=== PATIENT | male | born 1950 | race Caucasian/White ===

== ENCOUNTER 2019-02-24 13:55 | Emergency (ER) | payer BC, MEDICAID ==
[~2019-02-24] VITALS: Ht 157.5 cm; Wt 59.0 kg
[~2019-02-24 13:55] MED LIST: INSDRIP SUBCUT; PHE100C PO
[2019-02-24] MEDS ORDERED: ACETAMINOPHEN 325 MG TAB PO ONE (18:15)
[2019-02-24 18:32] VITALS: BP 134/91
== END 2019-02-24 18:46 | disposition home or self-care (01) ==
LOC: ER 14:05
DX: S83.92XA Sprain of unspecified site of left knee, initial encounter (principal); E11.9 Type 2 diabetes mellitus without complications; F17.210 Nicotine dependence, cigarettes, uncomplicated; F12.10 Cannabis abuse, uncomplicated; Z88.8 Allergy status to other drugs, medicaments and biological substances; W19.XXXA Unspecified fall, initial encounter; Y93.89 Activity, other specified; Y99.8 Other external cause status; Y92.89 Other specified places as the place of occurrence of the external cause
CPT/HCPCS: 73562

== ENCOUNTER 2025-01-11 17:36 | Inpatient (IN) | payer OTHER, MEDICARE ==
[~2025-01-11] VITALS: Ht 157.5 cm; Wt 54.1 kg
[~2025-01-11 17:36] MED LIST changes: -PHE100C PO; +PHEN1CAP38 PO
--- NOTE | 2025-01-11 19:25 | ED.PDOC ---
History of Present Illness HPI Comments This patient is a 74 y/o M who appears to be in poor overall health with a history of DM, seizures, and polysubstance abuse, is BIBA with c/c of bilateral foot wound discharge and odor. Patient reports recent onset of symptoms over the past few days following left-sided multidigit foot amputation as well as complaints on the pedal aspect of the right foot with accompanying wounds. Denies any fever, chills, or further associated symptoms. Vital signs were stable on arrival. Chief Complaint: Wound Check Time Seen by MD: 19:00 Primary Care Provider: OUT OF TOWN Reviewed Notes: Nurses Notes, Dressmaking Teacher Notes, Medications, Allergies Allergies: Coded Allergies: Nifedipine (Verified Allergy, Unknown, 08/05/18) Home Meds Reported Medications Phenytoin Sodium (DILANTIN CAPSULE) 100 Mg Cp, PO TID for 30 Days 08/06/18 Insulin Regular (Human) (Novolin R) 100 Unit/Ml Inj, 20 UNIT SUBCUT TID, INJ 08/06/18 Information Source: Patient, Emergency Med Personnel Mode of Arrival: EMS Severity: Moderate Timing: Hours Duration: Since onset Prehospital treatment: 12 Lead EKG, Accucheck, Heel Caser Past Medical History PAST MEDICAL HISTORY: DM, Seizures Surgical History: Denies all surgeries Surgical History (Other): Recent left forefoot amputation due to complications from diabetes Family History Family History: Unobtainable Social History Smoker: Cigarettes Alcohol: Occasionally Drugs: Methamphetamine Lives In: Home Constitutional: denies: chills, diaphoresis, fatigue, fever, malaise, sweats, weakness, others EENTM: denies: blurred vision, double vision, ear bleeding, ear discharge, ear drainage, ear pain, ear ringing, eye pain, eye redness, hearing loss, mouth pain, mouth swelling, nasal discharge, nose bleeding, nose congestion, nose pain, photophobia, tearing, throat pain, throat swelling, voice changes, others Respiratory: denies: cough, hemoptysis, orthopnea, SOB at rest, shortness of breath, SOB with excertion, stridor, wheezing, others Cardiovascular: denies: chest pain, dizzy spells, diaphoresis, Dyspnea on exertion, edema, irregular heart beat, left arm pain, lightheadedness, palpitations, PND, syncope, others Gastrointestinal: denies: abdomen distended, abdominal pain, blood streaked bowels, constipated, diarrhea, dysphagia, difficulty swallowing, hematemesis, melena, nausea, poor appetite, poor fluid intake, rectal bleeding, rectal pain, vomiting, others Genitourinary: denies: burning, dysuria, flank pain, frequency, hematuria, incontinence, penile discharge, penile sore, pain, testicle pain, testicle swelling, urgency, others Neurological: denies: dizziness, fainting, headache, left sided numbness, left sided weakness, numbness, paresthesia, pre-existing deficit, right sided nu mbness, right sided weakness, seizure, speech problems, tingling, tremors, weakness, others Musculoskeletal: reports: others (Bilateral foot wounds and pain.); denies: back pain, gout, joint pain, joint swelling, muscle pain, muscle stiffness, neck pain Integumetry: denies: bruises, change in color, change in hair/nails, dryness, laceration, lesions, lumps, rash, wounds, others Allergic/Immunocompromised: denies: Difficulty Healing, Frequent Infections, Hives, Itching, others Hematologic/Lymphatic: denies: anemia, blood clots, easy bleeding, easy bruising, swollen glands, others Endocrine: denies: excessive hunger, excessive sweating, excessive thirst, excessive urination, flushing, intolerance to cold, intolerance to heat, unexplained weight gain, unexplained weight loss, others Psychiatric: denies: anxiety, bipolar disorder, depression, hopeless, panic disorder, schizophrenia, sleepless, suicidal, others All Other Systems: Reviewed and Negative (Comprehensive systems review obtained and negative except for what is stated in the HPI.) Physical Exam General Appearance: Mild Distress (Moderate distress due to concerns related to his foot issues.), Normal HEENT: Normal ENT Inspection, Pharynx Normal, TMs Normal Neck: Full Range of Motion, Non-Tender, Normal, Normal Inspection Respiratory: Chest Non-Tender, Lungs Clear, No Accessory Muscle Use, No Respiratory Distress, Normal Breath Sounds Cardiovascular: No Edema, No JVD, No Murmur, No Gallop, Normal Peripheral Pulses, Regular Rate/Rhythm Breast Exam: Deferred Gastrointestinal: No Organomegaly, Non Tender, No Pulsatile Mass, Normal Bowel Sounds, Soft Genitalia: Deferred Pelvic: Deferred Rectal: Deferred Extremities: Other (Patient displays a malodorous wounds to the left foot with friable tissue and tissue compromise throughout. Localized erythema and edema. Right foot has mild malodorous concerns with wounds noted to multiple pedal aspect.) Neurologic: Alert Cerebellar Function: NOT DONE Reflexes: NOT DONE Skin: Dry, Wounds (See extremities for description of bilateral foot wounds) Lymphatic: No Adenopathy Was a procedure done? Was a procedure done?: No Differential Dx Considerations may include: unhealing diabetic wound, cellulitis, sepsis, among others, among others X-Ray, Labs, Meds, VS Vital Signs Date Time Temp Pulse Resp B/P (MAP) Pulse Ox O2 Delivery O2 Flow Rate FiO2 01/11/25 20:00 98.6 83 19 120/63 (82) 95 98.6 01/11/25 17:39 98.3 84 16 121/71 95 98.3 Lab Test 01/11/25 20:35 01/11/25 19:39 Range/Units Troponin I High Sensitivity 7 7 </=54 ng/L White Blood Count 9.2 4.4-10.8 10^3/uL Red Blood Count 5.14 4.5-5.90 10^6/uL Hemoglobin 13.9 13.5-17.5 g/dL Hematocrit 42.2 41.0-53.0 % Mean Corpuscular Volume 82.2 80.0-100.0 fL Mean Corpuscular Hemoglobin 27.0 L 28.0-32.0 pg Mean Corpuscular Hemoglobin Concent 32.8 32.0-36.0 g/dL Red Cell Distribution Width 15.2 H 11.8-14.3 % Platelet Count 184 140-450 10^3/uL Mean Platelet Volume 8.6 6.9-10.8 fL Neutrophils (%) (Auto) 67.8 37.0-80.0 % Lymphocytes (%) (Auto) 25.0 10.0-50.0 % Monocytes (%) (Auto) 4.7 0.0-12.0 % Eosinophils (%) (Auto) 1.7 0.0-7.0 % Basophils (%) (Auto) 0.8 0.0-2.0 % Neutrophils # (Auto) 6.3 1.6-8.6 10 ^3/uL Lymphocytes # (Auto) 2.3 0.4-5.4 10 ^3/uL Monocytes # (Auto) 0.4 0-1.3 10 ^3/uL Eosinophils # (Auto) 0.2 0-0.8 10 ^3/uL Basophils # (Auto) 0.1 0-0.2 10 ^3/uL Nucleated Red Blood Cells 0.0 % Sodium Level 144 136-145 mmol/L Potassium Level 4.5 3.5-5.1 mmol/L Chloride Level 109 H 98-107 mmol/L Carbon Dioxide Level 26 20-31 mmol/L Anion Gap 9 5-15 Blood Urea Nitrogen 31 H 9-23 mg/dL Creatinine 1.21 0.700-1.30 mg/dL Glomerular Filtration Rate Calc 62 >90 mL/min BUN/Creatinine Ratio 25.6 H 10.0-20.0 Serum Glucose 199 H 74-106 mg/dL Lactic Acid Level 1.3 0.4-2.0 mmol/L Calcium Level 9.4 8.7-10.4 mg/dL [place] [id number] Ph: [phone] DIAGNOSTIC IMAGING Diagnostic Imaging Report : [id number] Signed PATIENT: FRANCISCO MOYA ACCT: [id number] UNIT: [id number] : 1950 LOC: ER ROOM / BED: / AGE / SEX: 74 / M ADM STATUS: REG ER SERVICE 03 ORDERING PHYSICIAN: NICOLE BALL PAC PROCEDURE(s): RFTCT - CT R FOOT WO CONTRAST REASON: Rule out osteomyelitis ORDER NUMBER(s): [id number], ACCESSION NUMBER(s): [id number] EXAM: CT CT R FOOT WO CONTRAST INDICATION: Rule out osteomyelitis TECHNIQUE: Axial images of right foot without contrast have been obtained along with coronal and sagittal reformatted images. All CT scans at this facility use dose modulation, iterative reconstruction, and/or weight based dosing when appropriate to reduce radiation dose to as low as reasonably achievable. COMPARISON: CT CT L FOOT WO CONTRAST on DOS: 01/11/25 FINDINGS: BONES: No CT evidence of an acute fracture or aggressive osseous lesion. Deep to the 1st metatarsophalangeal joint. No abnormal osseous erosion, lucency, sclerosis to suggest osteomyelitis. Pressure related change deep to the 5th metatarsal head with slight cortical irregularity of the 5th metatarsal head likely related to prior injury versus chronic repetitive injury. MUSCLES: No abnormal attenuation. JOINT SPACES: No joint effusion. TENDONS/LIGAMENTS: Intact. OTHER: Vascular calcifications. Achilles insertional enthesophyte appearance small plantar calcaneal spur. IMPRESSION: 1. No CT evidence of osteomyelitis. If continued clinical concern 2. No CT evidence of an acute fracture., recommend further evaluation with MRI with and without contrast for improved sensitivity. ATED BY: WILLIE SAWYER MD DICTATED DATE/TIME: 01/11/252018 SIGNED BY: WILLIE SAWYER MD SIGNED DATE/TIME: 01/11/252018 CC: [place] [id number] Ph: [phone] DIAGNOSTIC IMAGING Diagnostic Imaging Report : [id number] Signed PATIENT: FRANCISCO MOYA ACCT: [id number] UNIT: [id number] : 1950 LOC: ER ROOM / BED: / AGE / SEX: 74 / M ADM STATUS: REG ER SERVICE 03 ORDERING PHYSICIAN: NICOLE BALL PAC PROCEDURE(s): LFTCT - CT L FOOT WO CONTRAST REASON: Bilateral diabetic foot. ORDER NUMBER(s): [id number], ACCESSION NUMBER(s): [id number] EXAM: CT CT L FOOT WO CONTRAST INDICATION: Bilateral diabetic foot. TECHNIQUE: Axial images of left foot without contrast have been obtained along with coronal and sagittal reformatted images. All CT scans at this facility use dose modulation, iterative reconstruction, and/or weight based dosing when appropriate to reduce radiation dose to as low as reasonably achievable. COMPARISON: CT CT R FOOT WO CONTRAST on DOS: 01/11/25 FINDINGS: BONES: Transmetatarsal amputation without evidence of abnormal osseous erosion however abnormal area of inflammatory stranding/ phlegmon with possible small incompletely characterized fluid collection measuring 1.4 cm of the anterior aspect of the residual 3rd and 4th metatarsal stumps. Consider further evaluation with intravenous contrast versus MRI with and without contrast. Diffusely decreased bone mineral density. MUSCLES: No intramuscular fluid collection JOINT SPACES: No joint effusion. OTHER: None. IMPRESSION: 1. Transmetatarsal amputation without evidence of abnormal osseous erosion however abnormal area of inflammatory stranding/ phlegmon with possible small incompletely characterized fluid collection measuring 1.4 cm of the anterior aspect of the residual 3rd and 4th metatarsal stumps. 2. Consider further evaluation with intravenous contrast versus MRI with and without contrast. ATED BY: WILLIE SAWYER MD DICTATED DATE/TIME: 01/11/252016 SIGNED BY: WILLIE SAWYER MD SIGNED DATE/TIME: 01/11/252016 CC: X-Ray, Labs, Meds, VS Comment All studies performed the ED were evaluated by me personally. Serum laboratories were unremarkable for any systemic concerns, but CT evaluation of bilateral feet was concerning for possible osteomyelitis formation. Left foot wound is significant with a gas trapping and right foot room is less concerning. Patient will be admitted for IV antibiotics as well as podiatry evaluation. Time of 1ST Reevaluation: 21:57 Reevaluation 1ST: Improved Consultation: PCP Patient Education/Counseling: Diagnosis, Treatment Family Education/Counseling: Diagnosis, Treatment, No Family Present SEPSIS Sepsis Screen Date sepsis recognized/suspect: Jan 11, 2025 Time Sepsis recognized/suspect: 1738 Recent Procedure: No On Antibiotic Therapy: No Respiratory Rate >20: No Heart Rate >90: No Temp<36 C (96.8 F) or >38.3 C: No SBP <90 or MAP <65 mmHG: No New Acute Mental Status Change: No Is the patient on CPAP, BIPAP,: No Physician Orders Electrocardigram (01/11/25 19:04) Ct L Foot Wo Contrast (01/11/25 19:04) Ct R Foot Wo Contrast (01/11/25 19:04) Vital Signs Date Time Temp Pulse Resp B/P (MAP) Pulse Ox O2 Delivery O2 Flow Rate FiO2 01/11/25 20:00 98.6 83 19 120/63 (82) 95 98.6 01/11/25 17:39 98.3 84 16 121/71 95 98.3 Laboratory Tests Test 01/11/25 19:39 Lactic Acid Level 1.3 mmol/L (0.4-2.0) White Blood Count 9.2 10^3/uL (4.4-10.8) Departure 1 Departure Time of Disposition: 21:57 Impression: Primary Impression: Diabetic foot Additional Impression: Cellulitis Disposition: 09 ADMITTED INPATIENT Condition: Stable Discharged With: Self Critical Care Note Critical Care Time?: No Stability Stability form required: No Heart Score Heart Score: Heart Score Response (Comments) Value History N/A 0 EKG N/A 0 Age N/A 0 Risk Factors N/A 0 Troponin N/A 0 Total 0 I personally scribed for NICOLE BALL PAC ([email or web address]) on 01/11/25 at 19:25. Electronically submitted by Reece Gunderson ([email or web address]). I personally scribed for NICOLE BALL PAC ([email or web address]) on 01/11/25 at 19:26. Electronically submitted by Reece Gunderson ([email or web address]). I personally scribed for NICOLE BALL PAC ([email or web address]) on 01/11/25 at 21:45. Electronically submitted by Reece Gunderson ([email or web address]). NICOLE BALL PAC Jan 11, 2025 19:25
[2025-01-11 19:56] LABS: Hematocrit 42.2 % (41.0-53.0); Hemoglobin 13.9 g/dL (13.5-17.5); Mean Corpuscular Hemoglobin 27.0 pg (28.0-32.0); Mean Corpuscular Volume 82.2 fL (80.0-100.0); Nucleated Red Blood Cells % 0.0 %
[2025-01-11 20:06] LABS: Potassium 4.5 mmol/L (3.5-5.1); Sodium 144 mmol/L (136-145)
[2025-01-11 20:07] LABS: Anion Gap 9 (5-15); Calcium 9.4 mg/dL (8.7-10.4); Carbon Dioxide 26 mmol/L (20-31)
[2025-01-11 20:12] LABS: BUN/Creatinine Ratio 25.6 (10.0-20.0)
[2025-01-11 20:16] LABS: Blood Urea Nitrogen 31 mg/dL (9-23); Chloride 109 mmol/L (98-107); Glucose 199 mg/dL (74-106)
--- NOTE | 2025-01-11 20:19 | DVH ---
EXAM: CT CT L FOOT WO CONTRAST INDICATION: Bilateral diabetic foot. TECHNIQUE: Axial images of left foot without contrast have been obtained along with coronal and sagit michelle reformatted images. All CT scans at this facility use dose modulation, iterative reconstruction, and/or weight based dosing when appropriate to reduce radiation dose to as low as reasonably achievab le. COMPARISON: CT CT R FOOT WO CONTRAST on DOS: 01/11/25 FINDINGS: BONES: Transmetatarsal amputation without evidence of abnormal osseous erosion however abnormal area of inflammatory stranding/ phlegmon with possible small incompletely characterized fluid collection m easuring 1.4 cm of the anterior aspect of the residual 3rd and 4th metatarsal stumps. Consider furth er evaluation with intravenous contrast versus MRI with and without contrast. Diffusely decreased bon e mineral density. MUSCLES: No intramuscular fluid collection JOINT SPACES: No joint effusion. OTHER: None. IMPRESSION: 1. Transmetatarsal amputation without evidence of abnormal osseous erosion however abnormal area of i nflammatory stranding/ phlegmon with possible small incompletely characterized fluid collection measu ring 1.4 cm of the anterior aspect of the residual 3rd and 4th metatarsal stumps. 2. Consider further evaluation with intravenous contrast versus MRI with and without contrast.
--- NOTE | 2025-01-11 20:21 | DVH ---
EXAM: CT CT R FOOT WO CONTRAST INDICATION: Rule out osteomyelitis TECHNIQUE: Axial images of right foot without contrast have been obtained along with coronal and sagi ttal reformatted images. All CT scans at this facility use dose modulation, iterative reconstruction, and/or weight based dosing when appropriate to reduce radiation dose to as low as reasonably achieva ble. COMPARISON: CT CT L FOOT WO CONTRAST on DOS: 01/11/25 FINDINGS: BONES: No CT evidence of an acute fracture or aggressive osseous lesion. Deep to the 1st metatarsopha langeal joint. No abnormal osseous erosion, lucency, sclerosis to suggest osteomyelitis. Pressure rel ated change deep to the 5th metatarsal head with slight cortical irregularity of the 5th metatarsal h ead likely related to prior injury versus chronic repetitive injury. MUSCLES: No abnormal attenuation. JOINT SPACES: No joint effusion. TENDONS/LIGAMENTS: Intact. OTHER: Vascular calcifications. Achilles insertional enthesophyte appearance small plantar calcaneal spur. IMPRESSION: 1. No CT evidence of osteomyelitis. If continued clinical concern 2. No CT evidence of an acute fracture., recommend further evaluation with MRI with and without contr ast for improved sensitivity.
[2025-01-12] VITALS (8 sets, daily range): BP systolic 107–141; BP diastolic 67–88; PULSE 75–89; RESP 16–18; TEMP 96.8–97.9; O2SAT 92–97
[2025-01-12] MEDS ORDERED: DEXTROSE (50%) 50ML SYRG IV PRN (00:15)
[2025-01-12] MEDS ORDERED: VANCOMYCIN PER PHARMACY 0 MG IV SCH (00:15)
--- NOTE | 2025-01-12 00:26 | DVHHPRES ---
History of Present Illness Resident Creating Document: WESLEY ROMO History of Present Illness Patient is a 74-year-old male with past medical history of diabetes mellitus, seizures, and polysubstance abuse, presented to [facility] ED with complaint of bilateral foot wound discharge and odor. The patient reports that symptoms began a few days ago following a recent left-sided multidigit forefoot amputation due to complications from diabetes. He also complains of wounds on the pedal aspect of the right foot. He denies fever, chills, or any other associated symptoms. On evaluation in the ED, patient is afebrile, vitals are stable. Initial labs show significant serum glucose 199. CT left foot shows abnormal area of inflammatory stranding/ phlegmon with possible small incompletely characterized fluid collection measuring 1.4 cm of the anterior aspect of the residual 3rd and 4th metatarsal stumps. The patient was started on IV antibiotics and wound consult. Patient is admitted for further evaluation and management. Past Medical History diabetes mellitus, seizures, polysubstance abuse Past Surgical History left-sided multidigit forefoot amputation Family History: None Smoke: <1 pack per day ALCOHOL: heavy Drugs: Other Past Social History Methamphetamine Review of Systems Review of Systems Eyes: No Pain, No Vision change, No Conjunctivae inflammation, No Eyelid inflammation, No Other, No Redness ENT: No Ear pain, No Ear discharge, No Nose pain, No Nose discharge, No Nose congestion, No Mouth pain, No Mouth swelling, No Throat pain, No Throat swelling, No Other Cardiovascular: No Chest Pain, No Palpitations, No Orthopnea, No Paroxysmal No Dyspnea, No Edema, No Lt Headedness, No Other Respiratory: No Cough, No Dry, No Shortness of breath, No SOB with exertion, No Wheezing, No Hemoptysis, No Pleuritic Pain, No Sputum, No Other Gastrointestinal: No Nausea, No Vomiting, No Abdominal Pain, No Diarrhea, No Constipation, No Melena, No Hematochezia, No Other Genitourinary: No Dysuria, No Frequency, No Incontinence, No Hematuria, No Retention, No Other Musculoskeletal: other (Bilateral foot wounds), No neck pain, No shoulder pain, No arm pain, No back pain, No hand pain, No leg pain, No foot pain Skin: No Rash, No Lesions, No Jaundice, No Bruising, No Other Allergies: Coded Allergies: Nifedipine (Verified Allergy, Unknown, 5/18/19) Exam Vital Signs Vital Signs Date Time Temp Pulse Resp B/P (MAP) Pulse Ox O2 Delivery O2 Flow Rate FiO2 01/11/25 23:45 98.4 86 19 115/65 (82) 96 98.4 Exam General Appearance: Cooperative. Well developed. Well nourished. NAD Head Exam: Normal inspection Neck Exam: Normal inspection. Non-tender. Normal alignment Pulmonary/Respiratory: Chest non-tender. Clear bilateral breath sounds, no crackles, no wheezing. Cardiovascular/Chest: Regular rate and rhythm. No murmurs. No JVD. Peripheral Pulses: 2+ Radial (R). 2+ Radial (L). 2+ Pedal (R). 2+ Pedal (L) Abdominal Exam: Normal bowel sounds. Soft. normal abdomen, no visible veins, Nontender. No hepatospenomegaly. No masses Ankle Exam: Negative ankle edema Lower extremities: malodorous wounds to the left foot with friable tissue and tissue compromise throughout. Localized erythema and edema. Right foot has mild malodorous concerns with wounds noted to multiple pedal aspect. Neuro/Mental Status: A&O x4. Coherent. Thoughts/Psych: Normal thought pattern. Appropriate mood and affect. Good gene gement and insight Skin Exam: Normal inspection. Normal color. Warm. Dry Labs/Xrays Labs Test 01/11/25 20:35 01/11/25 19:39 Range/Units Troponin I High Sensitivity 7 </=54 ng/L White Blood Count 9.2 4.4-10.8 10^3/uL Red Blood Count 5.14 4.5-5.90 10^6/uL Hemoglobin 13.9 13.5-17.5 g/dL Hematocrit 42.2 41.0-53.0 % Mean Corpuscular Volume 82.2 80.0-100.0 fL Mean Corpuscular Hemoglobin 27.0 L 28.0-32.0 pg Mean Corpuscular Hemoglobin Concent 32.8 32.0-36.0 g/dL Red Cell Distribution Width 15.2 H 11.8-14.3 % Platelet Count 184 140-450 10^3/uL Mean Platelet Volume 8.6 6.9-10.8 fL Neutrophils (%) (Auto) 67.8 37.0-80.0 % Lymphocytes (%) (Auto) 25.0 10.0-50.0 % Monocytes (%) (Auto) 4.7 0.0-12.0 % Eosinophils (%) (Auto) 1.7 0.0-7.0 % Basophils (%) (Auto) 0.8 0.0-2.0 % Neutrophils # (Auto) 6.3 1.6-8.6 10 ^3/uL Lymphocytes # (Auto) 2.3 0.4-5.4 10 ^3/uL Monocytes # (Auto) 0.4 0-1.3 10 ^3/uL Eosinophils # (Auto) 0.2 0-0.8 10 ^3/uL Basophils # (Auto) 0.1 0-0.2 10 ^3/uL Nucleated Red Blood Cells 0.0 % Sodium Level 144 136-145 mmol/L Potassium Level 4.5 3.5-5.1 mmol/L Chloride Level 109 H 98-107 mmol/L Carbon Dioxide Level 26 20-31 mmol/L Anion Gap 9 5-15 Blood Urea Nitrogen 31 H 9-23 mg/dL Creatinine 1.21 0.700-1.30 mg/dL Glomerular Filtration Rate Calc 62 >90 mL/min BUN/Creatinine Ratio 25.6 H 10.0-20.0 Serum Glucose 199 H 74-106 mg/dL Lactic Acid Level 1.3 0.4-2.0 mmol/L Calcium Level 9.4 8.7-10.4 mg/dL SEPSIS Sepsis Screen Date sepsis recognized/suspect: Jan 11, 2025 Time Sepsis recognized/suspect: 1738 Recent Procedure: No On Antibiotic Therapy: No Respiratory Rate >20: No Heart Rate >90: No Temp<36 C (96.8 F) or >38.3 C: No SBP <90 or MAP <65 mmHG: No New Acute Mental Status Change: No Is the patient on CPAP, BIPAP,: No Physician Orders Electrocardigram (01/11/25 19:04) Ct L Foot Wo Contrast (01/11/25 19:04) Ct R Foot Wo Contrast (01/11/25 19:04) Admit (01/12/25 00:04) Allergies (01/12/25 00:04) Code Status (01/12/25 00:04) Sodium Chloride Lock (Saline Lock Ns) (01/12/25 06:00) Complete Blood Count (01/12/25 04:00) Comprehensive Metabolic Panel (01/12/25 04:00) Cardiac Diet-2gna,Lofat,Lochol (01/12/25 Breakfast) Condition: Fair (01/12/25 00:04) Stat Ekg For Chest Pain (01/12/25 00:04) Notify Of Changes From Base (01/12/25 00:04) Inside Solar Sales Consultant For 24 Hours (01/12/25 00:04) Emergency Dysrhythmia Protocol (01/12/25 00:04) Rhythm Strips Once Every Shift (01/12/25 00:04) * Wound Consult (01/12/25 ) Wound Culture W/ Gs (01/12/25 00:04) Drug Screen (01/12/25 00:04) Urinalysis (01/12/25 00:04) Erythrocyte Sedimentation Rate (01/12/25 00:04) C-Reactive Protein (01/12/25 00:04) Glucose Blood (Accu-Chek Comfort Curve T (01/12/25 07:00) Mild Sliding Scale (01/12/25 07:00) Dextrose 50% Syringe (01/12/25 00:15) Hepatic Panel (01/12/25 00:04) Vancomycin (01/12/25 00:15) Cefepime 1 Gm (01/12/25 10:00) Cefepime 1 Gm (01/12/25 00:15) Lactic Acid W/ Reflex Order (01/12/25 00:04) *Podiatry Consult Selam(Eduardomg) (01/12/25 00:04) Vital Signs Date Time Temp Pulse Resp B/P (MAP) Pulse Ox O2 Delivery O2 Flow Rate FiO2 01/11/25 23:45 98.4 86 19 115/65 (82) 96 98.4 01/11/25 20:00 98.6 83 19 120/63 (82) 95 98.6 01/11/25 17:39 98.3 84 16 121/71 95 98.3 Laboratory Tests Test 01/11/25 19:39 Lactic Acid Level 1.3 mmol/L (0.4-2.0) White Blood Count 9.2 10^3/uL (4.4-10.8) Assessment/Plan Assessment/Plan Bilateral foot wound secondary to diabetes mellitus complication, r/o abscess, osteomyelitis s/p left-sided multidigit forefoot amputation Type 2 diabetes mellitus with hyperglycemia CT right foot: No CT evidence of osteomyelitis. No CT evidence of an acute fracture. CT left foot: Transmetatarsal amputation without evidence of abnormal osseous erosion however abnormal area of inflammatory stranding/ phlegmon with possible small incompletely characterized fluid collection measuring 1.4 cm of the anterior aspect of the residual 3rd and 4th metatarsal stumps. MRI left foot ordered Blood culture and urine culture Wound culture Wound consult Podiatry consult Mild SSI Accu-Chek Cefepime 1 GM IV q12h Vancomycin IV A1C IV NS Seizures disorder Phenytoin 100 MG po q8h Polysubstance abuse I have counseled the patient on the importance of complete illicit drug use cessation for 12 minutes. Diet: Cardiac Goals of care: Full code, discussed for >16 minutes on 01/12/25 Plan discussed with patient Plan discussed with Dr. Mcdaniels Plan discussed with: Patient My Orders Orders - WESLEY ROMO RESIDENT Procedure Category Date Status Time Admit ADMIT 01/12/25 Transmitted 00:04 Allergies AXEL 01/12/25 In Process 00:04 Code Status CODE 01/12/25 Transmitted 00:04 Sodium Chloride Lock PHA 01/12/25 Logged (Saline Lock Ns) 06:00 Complete Blood Count LAB 01/12/25 Transmitted 04:00 Comprehensive LAB 01/12/25 Transmitted Metabolic Panel 04:00 Cardiac DIET 01/12/25 Transmitted Diet-2gna,Lofat,Lochol Breakfast Condition: Fair AXEL 01/12/25 In Process 00:04 Stat Ekg For Chest AXEL 01/12/25 In Process Pain 00:04 Notify Md Of Changes [facility] 01/12/25 In Process From Base 00:04 Inside Solar Sales Consultant For [facility] 01/12/25 In Process 24 Hours 00:04 Emergency Dysrhythmia AXEL 01/12/25 In Process Protocol 00:04 Rhythm Strips Once [facility] 01/12/25 In Process Every Shift 00:04 * Wound Consult CONS 01/12/25 Transmitted Wound Culture W/ Gs LENCHO 01/12/25 Transmitted 00:04 Drug Screen LAB 01/12/25 Transmitted 00:04 Urinalysis LAB 01/12/25 Transmitted 00:04 Erythrocyte LAB 01/12/25 Transmitted Sedimentation Rate 00:04 C-Reactive Protein LAB 01/12/25 Transmitted 00:04 Glucose Blood PHA 01/12/25 Logged (Accu-Chek Comfort 07:00 Mild Sliding Scale PHA 01/12/25 Transmitted 07:00 Dextrose 50% Syringe PHA 01/12/25 Transmitted 00:15 Hepatic Panel LAB 01/12/25 Transmitted 00:04 Vancomycin PHA 01/12/25 Transmitted 00:15 Cefepime 1 Gm PHA 01/12/25 Transmitted 10:00 Cefepime 1 Gm PHA 01/12/25 Transmitted 00:15 Lactic Acid W/ Reflex LAB 01/12/25 Transmitted Order 00:04 *Podiatry Consult CONS 01/12/25 Transmitted Musson(Dvmg) 00:04 Date of Service: Jan 12, 2025 Billing Provider: CHING MCDANIELS MD Common Visit Codes: [id number] INP/OBS CARE (HIGH) Secondary Visit Codes: [id number] CARE PLAN 30 MINUTES WESLEY ROMO RESIDENT Jan 12, 2025 00:26 LORENZO MONSIVAIS RESIDENT Jan 12, 2025 06:26 CHING MCDANIELS MD Jan 16, 2025 12:05
[2025-01-12 01:20] LABS: Alanine Aminotransferase 13 U/L (7-40)
[2025-01-12 01:21] LABS: Albumin 4.6 g/dL (3.2-4.8); Alkaline Phosphatase 144 U/L (46-116); Bilirubin, Direct < 0.1 mg/dL (<0.3); Bilirubin, Total 0.2 mg/dL (0.2-1.0); Total Protein 8.6 g/dL (5.7-8.2)
[2025-01-12] MEDS: PHENYTOIN SODIUM 100 MG CAP PO ONE (01:24)
[2025-01-12 03:20] LABS: Hematocrit 44.8 % (41.0-53.0); Hemoglobin 14.7 g/dL (13.5-17.5); Mean Corpuscular Hemoglobin 27.2 pg (28.0-32.0); Mean Corpuscular Volume 82.7 fL (80.0-100.0); Nucleated Red Blood Cells % 0.1 %
[2025-01-12 03:44] LABS: Alanine Aminotransferase 10 U/L (7-40); Albumin 4.6 g/dL (3.2-4.8); Anion Gap 8 (5-15); BUN/Creatinine Ratio 23.1 (10.0-20.0); Calcium 9.9 mg/dL (8.7-10.4); Carbon Dioxide 26 mmol/L (20-31); Potassium 4.4 mmol/L (3.5-5.1); Sodium 142 mmol/L (136-145)
[2025-01-12 03:45] LABS: Alkaline Phosphatase 146 U/L (46-116); Blood Urea Nitrogen 31 mg/dL (9-23); Chloride 108 mmol/L (98-107); Glucose 257 mg/dL (74-106); Total Protein 8.7 g/dL (5.7-8.2)
[2025-01-12 03:49] LABS: Bilirubin, Total 0.2 mg/dL (0.2-1.0)
[2025-01-12 03:54] LABS: Amphetamine Screen, Urine Neg (NEGATIVE); Barbiturate Scree,Urine Neg (NEGATIVE); Benzodiazephine Screen, Urine Neg (NEGATIVE); Cannabinoid Screen, Urine Neg (NEGATIVE); Cocaine Screen, Urine Neg (NEGATIVE); Opiate Scree,Urine Neg (NEGATIVE); Phencyclidine Screen, Urine Neg (NEGATIVE)
[2025-01-12 04:10] LABS: Urine Budding Yeast MANY /hpf (None Seen); Urine Protein, UAD 1+ (Negative); Urine WBC Clumps PRESENT /hpf (None Seen)
[2025-01-12] MEDS: PHENYTOIN SODIUM 100 MG CAP PO SCH (05:40)
[2025-01-12] MEDS: VANCOMYCIN 1GM/250ML KIT 250 ML IV ONE (05:41)
[2025-01-12] MEDS: SODIUM CHLORIDE 0.9% 1,000 ML IV ONE (05:53)
[2025-01-12] MEDS: ACCU-CHEK COMFORT CURVE STRIP VI SCH (06:08)
[2025-01-12] MEDS: InsuLIN REG 1unit/0.01ml Soln (100units/ml) SC SCH (06:16)
[2025-01-12] MEDS: SODIUM CHLOR 0.9% PF (SALINE LOCK) 10ML VIAL/SYR IV SCH (06:26)
[2025-01-12] MEDS: CEFEPIME 1GM/50ML 50 ML IV ONE (10:15)
[2025-01-12] MEDS: CEFEPIME 1GM/50ML 50 ML IV SCH (10:25)
--- NOTE | 2025-01-12 11:29 | DVH ---
CLINICAL HISTORY: r/o osteomyelitis TECHNIQUE: MRI of the left foot was performed without gadolinium. COMPARISON: CT CT L FOOT WO CONTRAST on DOS: 01/11/25, LEFT XR FOOT 3+ VIEWS on DOS: 06/25/24, LEFT MR FOOT WITHOUT on DOS: 05/24/24, XR FOOT 3+ VIEWS on DOS: 05/19/24, XR FOOT 3+ VIEWS BILAT on DOS: 05/03/24 FINDINGS: There has been transmetatarsal amputation involving all of the digits. There is no abnormal bone shameka ow signal change to suggest acute osteomyelitis. There is subtle bone marrow edema at the surgical ma rgin of the remnant 1st, 2nd, and 4th mid metatarsals, compatible with phone at risk to develop acute osteomyelitis. There is adjacent soft tissue swelling. Small tract of fluid extends to the skin surf ling laterally. IMPRESSION: Transmetatarsal amputation with subtle bone marrow edema at the surgical margin of the remnant 1st, 2 nd, and 4th mid metatarsals, compatible with both at risk to develop acute osteomyelitis. No abnormal bone marrow signal to suggest acute osteomyelitis.
[2025-01-12] MEDS ORDERED: ACETAMINOPHEN 325 MG TAB PO PRN (20:45)
[2025-01-13 01:00] VITALS: BP 108/68; PULSE 81; RESP 18; TEMP 97.5; O2SAT 98
[2025-01-13 04:54] VITALS: BP 98/61; PULSE 76; RESP 17; TEMP 97.9; O2SAT 93
[2025-01-13 06:15] LABS: Hematocrit 40.3 % (41.0-53.0); Hemoglobin 13.3 g/dL (13.5-17.5); Mean Corpuscular Hemoglobin 27.4 pg (28.0-32.0); Mean Corpuscular Volume 82.9 fL (80.0-100.0); Nucleated Red Blood Cells % 0.0 %
[2025-01-13 09:00] VITALS: BP 104/64; PULSE 83; RESP 18; TEMP 97.8; O2SAT 95
[2025-01-13 13:00] VITALS: BP 110/70; PULSE 81; RESP 17; TEMP 97.5; O2SAT 94
[2025-01-13] MEDS: VANCOMYCIN 1GM/250ML KIT 250 ML IV ONE (16:17)
[2025-01-13 17:00] VITALS: BP 111/68; PULSE 77; RESP 16; TEMP 97.6; O2SAT 96
--- NOTE | 2025-01-13 18:06 | DVHPN2 ---
Subjective I am assuming the care of the patient from today onwards. Patient is here for bilateral foot wounds with drainage. Changes from previous H/P or p: No Changes Objective Vitals Vital Signs Date Time Temp Pulse Resp B/P (MAP) Pulse Ox O2 Delivery O2 Flow Rate FiO2 01/13/25 17:00 97.6 77 16 111/68 (82) 96 97.6 01/13/25 08:00 Room Air* 0 21 Intake/Output Intake and Output 01/13/25 07:00 Intake Total 1010 ml Balance 1010 ml Intake Oral 960 ml IV Total 50 ml # Voids 6 # Bowel Movements 3 Exam HEENT pupils are reactive Neck is supple CV system S2 regular rate and rhythm Respiratory bilateral clear. 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 Bilateral foot wound has antiseptic dressing Medications Current Medications Medications Dose Ordered Sig/Toño Route Start Time Stop Time Status Last Admin Dose Admin Sodium Chloride 10 ml Q8HR IV 01/12/25 06:00 01/13/25 14:00 10 ML Diagnostic Test (Pha) 1 strip ACHS 01/12/25 07:00 01/13/25 17:00 1 STRIP Insulin Human Regular ACHS SC 01/12/25 07:00 01/13/25 12:44 4 UNITS Dextrose 50 ml UD PRN IV 01/12/25 00:15 Vancomycin HCl 0 ml @ 0 mls/hr PER PHARMACY IV 01/12/25 00:15 Cefepime HCl 50 ml @ 12.5 mls/hr Q12HR IV 01/12/25 10:00 01/13/25 09:36 12.5 MLS/HR Phenytoin Sodium 100 mg Q8HR PO 01/12/25 06:00 01/13/25 16:16 100 MG Laboratory Results Laboratory Tests 01/12/25 03:00 01/13/25 04:50 Chemistry Test 01/12/25 20:35 Albumin 4.6 g/dL (3.2-4.8) Total Protein 8.6 g/dL (5.7-8.2) H LFT Test 01/12/25 20:35 Alanine Aminotransferase (ALT) 13 U/L (7-40) Alkaline Phosphatase 144 U/L (46-116) H Aspartate Amino Transferase (AST) 19 U/L (13-40) Direct Bilirubin < 0.1 mg/dL (<0.3) Total Bilirubin 0.2 mg/dL (0.2-1.0) Urinalysis Test 01/12/25 03:21 Urine Color Colorless (Yellow) Urine Clarity Turbid (Clear) H Urine pH 5.5 (5.0-9.0) Urine Specific [place] 1.023 (1.001-1.035) Urine Protein 1+ (Negative) H Urine Ketones Negative (Negative) Urine Blood 1+ /uL (Negative) H Urine Nitrite Negative (Negative) Urine Bilirubin Negative (Negative) Urine Urobilinogen Normal mg/dL (Negative) Urine Leukocyte Esterase 3+ /uL (Negative) Urine RBC 23 /hpf (0 - 3) Urine WBC Clumps Present /hpf (None Seen) Urine Microscopic WBC 850 /HPF (0-3) H Urine Squamous Epithelial Cells None seen /hpf (<5) Urine Bacteria None seen /hpf (None Seen) Urine Yeast (Budding) Many /hpf (None Seen) Urine Glucose 1+ mg/dL (Normal) H Microbiology Microbiology Date/Time Source Procedure Growth Status 01/12/25 03:21 Voided Urine Urine Culture - Preliminary Resulted 01/12/25 03:00 Blood Blood Culture - Preliminary NO GROWTH AFTER 24 HOURS OF INCUBATION. Resulted 01/12/25 01:12 Foot Gram Stain Pending Resulted 01/12/25 01:12 Foot Wound Culture - Preliminary Resulted Assessment/Plan Assessment/Plan 74-year-old male with a known history of diabetes mellitus type 2, seizure disorder, polysubstance abuse, previous history of diabetic foot wound status post transmetatarsal amputation presented to the hospital with bilateral 40 wound drainage found to have 1. Bilateral foot wound cellulitis 2. Acute osteomyelitis at 1st 2nd and 4th meter metatarsals of left foot 3. Diabetes mellitus type 2 5. Polysubstance abuse -IV antibiotics, podiatry services consultation, we will consider Infectious Disease consultation. Plan discussed with: Patient My Orders Orders - HAO BANDA MD Procedure Category Date Status Time Basic Metabolic Panel LAB 01/14/25 Verified 06:00 Complete Blood Count LAB 01/14/25 Verified 06:00 Magnesium LAB 01/14/25 Verified 06:00 Phenytoin (Dilantin) LAB 01/13/25 Verified 18:03 Date of Service: Jan 13, 2025 Billing Provider: HAO BANDA MD Common Visit Codes: [id number] INP/OBS CARE(HIGH) HAO BANDA MD Jan 13, 2025 18:06
[2025-01-13 21:00] VITALS: BP 125/77; PULSE 77; RESP 20; TEMP 98; O2SAT 96
[2025-01-14] VITALS (8 sets, daily range): BP systolic 102–111; BP diastolic 52–74; PULSE 75–88; RESP 17–20; TEMP 97.2–98.3; O2SAT 93–97
[2025-01-14 05:11] LABS: Hematocrit 40.1 % (41.0-53.0); Hemoglobin 13.5 g/dL (13.5-17.5); Mean Corpuscular Hemoglobin 27.4 pg (28.0-32.0); Mean Corpuscular Volume 81.4 fL (80.0-100.0); Nucleated Red Blood Cells % 0.0 %
[2025-01-14 05:27] LABS: Anion Gap 10 (5-15); Carbon Dioxide 24 mmol/L (20-31); Potassium 4.9 mmol/L (3.5-5.1); Sodium 141 mmol/L (136-145)
[2025-01-14 05:28] LABS: Calcium 8.9 mg/dL (8.7-10.4)
[2025-01-14 05:31] LABS: Chloride 107 mmol/L (98-107)
[2025-01-14 05:33] LABS: BUN/Creatinine Ratio 25.8 (10.0-20.0); Blood Urea Nitrogen 32 mg/dL (9-23); Glucose 154 mg/dL (74-106); Magnesium 1.9 mg/dL (1.6-2.6)
--- NOTE | 2025-01-14 12:13 | DVHCONRES ---
Date Seen: Jan 14, 2025 Reason for Consultation Bilateral foot wounds History of Present Illness Patient is a 74-year-old male with past medical history of diabetes mellitus, seizures, and polysubstance abuse, presented to [facility] ED with complaint of bilateral foot wound discharge and odor. The patient reports that symptoms began a few days ago following a recent left-sided multidigit forefoot amputation due to complications from diabetes. He also complains of wounds on the pedal aspect of the right foot. He denies fever, chills, or any other associated symptoms. On evaluation in the ED, patient is afebrile, vitals are stable. Initial labs show significant serum glucose 199. CT left foot shows abnormal area of inflammatory stranding/ phlegmon with possible small incompletely characterized fluid collection measuring 1.4 cm of the anterior aspect of the residual 3rd and 4th metatarsal stumps. The patient was started on IV antibiotics and wound consult. Patient is admitted for further evaluation and management. Past Medical History See H&P Past Surgical History See H&P Family History: Patient reports no known family medical history. Allergies: Coded Allergies: Nifedipine (Verified Allergy, Unknown, 08/05/18) Home Meds Reported Medications Phenytoin Sodium (DILANTIN CAPSULE) 100 Mg Cp, PO TID for 30 Days 08/06/18 Insulin Regular (Human) (Novolin R) 100 Unit/Ml Inj, 20 UNIT SUBCUT TID, INJ 08/06/18 Vital Signs Vital Signs Date Time Temp Pulse Resp B/P (MAP) Pulse Ox O2 Delivery O2 Flow Rate FiO2 01/14/25 09:22 98.0 75 17 109/67 (81) 93 98.0 01/13/25 20:10 Room Air* 0 21 Physical Exam Dermatological: Skin is dry with mild erythema and some maceration around the wound site No gross deformities noted Mild non-pitting edema present bilaterally Right plantar 1st metatarsophalangeal joint with fluctuance Left dorsal lateral TMA site wound granular base Vascular: Dorsalis pedis and posterior tibial pulses are 1+ bilaterally Capillary refill is under 2 seconds Skin temperature is warm bilaterally Neurologic: Protective sensation is absent on the plantar forefoot bilaterally Monofilament testing reveals decreased sensation in multiple plantar sites Musculoskeletal: Range of motion at the ankle and MTP joints is within normal limits. Strength is 5/5 in all tested muscle groups. Gait is antalgic due to offloading of the affected limb. Labs/Diagnostic Data Labs Test 01/14/25 06:06 01/14/25 04:57 01/13/25 18:44 01/12/25 20:35 Range/Units POC Glucose 159 H 70-106 mg/dl White Blood Count 9.6 4.4-10.8 10^3/uL Red Blood Count 4.92 4.5-5.90 10^6/uL Hemoglobin 13.5 13.5-17.5 g/dL Hematocrit 40.1 L 41.0-53.0 % Mean Corpuscular Volume 81.4 80.0-100.0 fL Mean Corpuscular Hemoglobin 27.4 L 28.0-32.0 pg Mean Corpuscular Hemoglobin Concent 33.6 32.0-36.0 g/dL Red Cell Distribution Width 14.7 H 11.8-14.3 % Platelet Count 178 140-450 10^3/uL Mean Platelet Volume 8.6 6.9-10.8 fL Neutrophils (%) (Auto) 71.1 37.0-80.0 % Lymphocytes (%) (Auto) 20.5 10.0-50.0 % Monocytes (%) (Auto) 6.5 0.0-12.0 % Eosinophils (%) (Auto) 1.6 0.0-7.0 % Basophils (%) (Auto) 0.3 0.0-2.0 % Neutrophils # (Auto) 6.8 1.6-8.6 10 ^3/uL Lymphocytes # (Auto) 2.0 0.4-5.4 10 ^3/uL Monocytes # (Auto) 0.6 0-1.3 10 ^3/uL Eosinophils # (Auto) 0.2 0-0.8 10 ^3/uL Basophils # (Auto) 0 0-0.2 10 ^3/uL Nucleated Red Blood Cells 0.0 % Sodium Level 141 136-145 mmol/L Potassium Level 4.9 3.5-5.1 mmol/L Chloride Level 107 98-107 mmol/L Carbon Dioxide Level 24 20-31 mmol/L Anion Gap 10 5-15 Blood Urea Nitrogen 32 H 9-23 mg/dL Creatinine 1.24 0.700-1.30 mg/dL Glomerular Filtration Rate Calc 61 >90 mL/min BUN/Creatinine Ratio 25.8 H 10.0-20.0 Serum Glucose 154 #H 74-106 mg/dL Calcium Level 8.9 8.7-10.4 mg/dL Magnesium Level 1.9 1.6-2.6 mg/dL Random Vancomycin Level 17.7 H 5-10 ug/mL Phenytoin (Dilantin) Level 5.6 L 10-20 ug/mL Total Bilirubin 0.2 0.2-1.0 mg/dL Direct Bilirubin < 0.1 <0.3 mg/dL Aspartate Amino Transferase (AST) 19 13-40 U/L Alanine Aminotransferase (ALT) 13 7-40 U/L Alkaline Phosphatase 144 H 46-116 U/L C-Reactive Protein High Sensitivity 0.92 <1.0 mg/dL Total Protein 8.6 H 5.7-8.2 g/dL Albumin 4.6 3.2-4.8 g/dL Test 01/12/25 03:21 01/12/25 03:00 01/12/25 01:02 01/11/25 20:35 Range/Units Urine Color Colorless Yellow Urine Clarity Turbid H Clear Urine pH 5.5 5.0-9.0 Urine Specific [place] 1.023 1.001-1.035 Urine Protein 1+ H Negative Urine Ketones Negative Negative Urine Blood 1+ H Negative /uL Urine Nitrite Negative Negative Urine Bilirubin Negative Negative Urine Urobilinogen Normal Negative mg/dL Urine Leukocyte Esterase 3+ Negative /uL Urine RBC 23 0 - 3 /hpf Urine WBC Clumps Present None Seen /hpf Urine Microscopic WBC 850 H 0-3 /HPF Urine Squamous Epithelial Cells None seen <5 /hpf Urine Bacteria None seen None Seen /hpf Urine Yeast (Budding) Many None Seen /hpf Urine Glucose 1+ H Normal mg/dL Urine Opiates Screen Neg NEGATIVE Urine Fentanyl Screen Neg NEGATIVE Urine Barbiturates Screen Neg NEGATIVE Urine Phencyclidine Screen Neg NEGATIVE Urine Amphetamines Screen Neg NEGATIVE Urine Benzodiazepines Screen Neg NEGATIVE Urine Cocaine Screen Neg NEGATIVE Urine Cannabinoids Screen Neg NEGATIVE Lactic Acid Level 1.2 0.4-2.0 mmol/L Erythrocyte Sedimentation Rate 52 H 0-20 mm/hr Hemoglobin A1c 9.8 H <5.7 % A1C Troponin I High Sensitivity 7 </=54 ng/L Microbiology Date/Time Source Procedure Growth Status 01/12/25 03:21 Voided Urine Urine Culture - Final Complete 01/12/25 03:00 Blood Blood Culture - Preliminary NO GROWTH AFTER 48 HOURS OF INCUBATION. Resulted 01/12/25 01:12 Foot Gram Stain - Final Complete 01/12/25 01:12 Wound Culture - Final Staphylococcus aureus Complete Problems(with codes): (1) Cellulitis (2) Diabetic foot Plan/Recommendation ASSESSMENT: Patient is a 74 year old seen on the floor for a worsening ulcer PLAN: - The patients chart was reviewed, clinical findings were discussed with the patient, the etiologies of the conditions were discussed in detail, and a treatment plan was agreed to at this time, with both oral and written instructions provided. - recommend we get an MRI of the right foot - left foot looks like it is healing appropriately just needs local wound care - we will rule out deeper infection on the right foot - pending the MRI we will either DC home on p.o. antibiotics or surgery of the right foot - follow up after the MRI All questions were answered and concerns addressed to the patient's satisfaction. The patient was given the phone number to the clinic and was told how to make contact with the clinic should any concerns or questions arise. Patient understands that if any questions or concerns arise prior to the next appointment, we should be contacted immediately. FOLLOW-UP: Continue to follow while inpatient Plan discussed with: Patient Visit Coding Podiatry Date of Service if different f: Jan 14, 2025 Billing Provider: VERN REA DPM Podiatry Common Visit Codes: CONSULT ONLY Podiatry Consult Codes: [id number] NEW/EST HI 80 VERN REA DPM Jan 14, 2025 12:13
[2025-01-14] MEDS: VANCOMYCIN 750MG KIT 100 ML IV ONE (15:38)
--- NOTE | 2025-01-14 16:32 | DVHPN2 ---
Subjective Patient is here for bilateral foot wounds. Pending MRI of the right foot. If there was osteomyelitis then patient needs debridement otherwise p.o. antibiotics as per podiatry services. Changes from previous H/P or p: No Changes Objective Vitals Vital Signs Date Time Temp Pulse Resp B/P (MAP) Pulse Ox O2 Delivery O2 Flow Rate FiO2 01/14/25 13:39 98.3 77 17 102/74 (83) 94 98.3 01/14/25 08:00 Room Air* 0 21 Intake/Output Intake and Output 01/14/25 07:00 Intake Total 1500 ml Output Total 1200 ml Balance 300 ml Intake Oral 1400 ml IV Total 100 ml Output Urine Total 1200 ml Exam HEENT pupils are reactive Neck is supple CV system S2 regular rate and rhythm Respiratory bilateral clear. 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 Bilateral foot wound has antiseptic dressing Medications Current Medications Medications Dose Ordered Sig/Toño Route Start Time Stop Time Status Last Admin Dose Admin Sodium Chloride 10 ml Q8HR IV 01/12/25 06:00 01/14/25 15:44 10 ML Diagnostic Test (Pha) 1 strip ACHS 01/12/25 07:00 01/14/25 12:35 1 STRIP Insulin Human Regular ACHS SC 01/12/25 07:00 01/14/25 12:35 3 UNITS Dextrose 50 ml UD PRN IV 01/12/25 00:15 Vancomycin HCl 0 ml @ 0 mls/hr PER PHARMACY IV 01/12/25 00:15 Cefepime HCl 50 ml @ 12.5 mls/hr Q12HR IV 01/12/25 10:00 01/14/25 11:07 12.5 MLS/HR Phenytoin Sodium 100 mg Q8HR PO 01/12/25 06:00 01/14/25 15:37 100 MG Laboratory Results Laboratory Tests 01/14/25 04:57 Chemistry Test 01/14/25 04:57 Calcium Level 8.9 mg/dL (8.7-10.4) Magnesium Level 1.9 mg/dL (1.6-2.6) Urinalysis Test 01/12/25 03:21 Urine Color Colorless (Yellow) Urine Clarity Turbid (Clear) H Urine pH 5.5 (5.0-9.0) Urine Specific [place] 1.023 (1.001-1.035) Urine Protein 1+ (Negative) H Urine Ketones Negative (Negative) Urine Blood 1+ /uL (Negative) H Urine Nitrite Negative (Negative) Urine Bilirubin Negative (Negative) Urine Urobilinogen Normal mg/dL (Negative) Urine Leukocyte Esterase 3+ /uL (Negative) Urine RBC 23 /hpf (0 - 3) Urine WBC Clumps Present /hpf (None Seen) Urine Microscopic WBC 850 /HPF (0-3) H Urine Squamous Epithelial Cells None seen /hpf (<5) Urine Bacteria None seen /hpf (None Seen) Urine Yeast (Budding) Many /hpf (None Seen) Urine Glucose 1+ mg/dL (Normal) H Microbiology Microbiology Date/Time Source Procedure Growth Status 01/12/25 03:21 Voided Urine Urine Culture - Final Complete 01/12/25 03:00 Blood Blood Culture - Preliminary NO GROWTH AFTER 48 HOURS OF INCUBATION. Resulted 01/12/25 01:12 Foot Gram Stain - Final Complete 01/12/25 01:12 Wound Culture - Final Staphylococcus aureus Complete Assessment/Plan Assessment/Plan 74-year-old male with a known history of diabetes mellitus type 2, seizure disorder, polysubstance abuse, previous history of diabetic foot wound status post transmetatarsal amputation presented to the hospital with bilateral 40 wound drainage found to have 1. Bilateral foot wound with cellulitis 2. Acute osteomyelitis at 1st 2nd and 4th meter metatarsals of left foot 4. Polysubstance abuse 5. Rule out osteomyelitis of the right foot wound, -MRI of the right foot today, depending upon MRI report podiatry services we will decide whether patient needs debridement versus p.o. antibiotics. -continue IV antibiotics. Plan discussed with: Patient Date of Service: Jan 14, 2025 Billing Provider: HAO BANDA MD Common Visit Codes: [id number] INP/OBS CARE(HIGH) HAO BANDA MD Jan 14, 2025 16:32
--- NOTE | 2025-01-14 17:41 | DVH ---
EXAMINATION: MRI MRI R FOOT WO CONTRAST TECHNIQUE: MRI of the right foot was performed without contrast. HISTORY: Pain and swelling. Assess for osteomyelitis. COMPARISON: MRI MRI L FOOT WO CONTRAST on DOS: 01/12/25, CT CT R FOOT WO CONTRAST on DOS: 01/11/25, CT CT L FOOT WO CONTRAST on DOS: 01/11/25, LEFT XR FOOT 3+ VIEWS on DOS: 06/25/24, LEFT MR FOOT WITHOUT on DOS: 05/24/24 FINDINGS: Focal ulcer at the plantar aspect of the forefoot overlying the 1st MTP joints. No abnormal T1 or T2 marrow signal to suggest osteomyelitis. No obvious erosive changes. Generalized soft tissue edema. No focal fluid collections. Flexor extensor tendons are intact. No tenosynovitis. Achilles tendon is unremarkable. Plantar fascia is intact. No fracture or malalignment IMPRESSION: No marrow edema to suggest osteomyelitis.
[2025-01-15] VITALS (8 sets, daily range): BP systolic 99–119; BP diastolic 61–78; PULSE 79–83; RESP 18; TEMP 97.3–97.7; O2SAT 25–95
--- NOTE | 2025-01-15 09:00 | MEDREC ---
[facility] Intervention Section I [facility] Intervention: Deescalate AB based on CS (Wound culture MSSA with susceptibility. Please consider d/c vancomycin and cefepime. Suggestion antibiotics to cover MSSA: cefazolin or nafcilin) CHAITANYA MALDONADO [facility] RESIDENT Jan 15, 2025 09:00
--- NOTE | 2025-01-15 14:07 | DVHPN2 ---
Reviewed: H&P Changes from previous H/P or p: No Changes General: Per HPI Objective Vitals Vital Signs Date Time Temp Pulse Resp B/P (MAP) Pulse Ox O2 Delivery O2 Flow Rate FiO2 01/15/25 12:54 97.4 80 18 107/73 (84) 94 97.4 01/15/25 08:00 Room Air* 0 21 Intake/Output Intake and Output 01/15/25 07:00 Intake Total 975 ml Output Total 1100 ml Balance -125 ml Intake Oral 925 ml IV Total 50 ml Output Urine Total 1100 ml Exam HEENT pupils are reactive Neck is supple CV system S2 regular rate and rhythm Respiratory bilateral clear. 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 Bilateral foot wound has antiseptic dressing, history left foot TMA Medications Current Medications Medications Dose Ordered Sig/Toño Route Start Time Stop Time Status Last Admin Dose Admin Sodium Chloride 10 ml Q8HR IV 01/12/25 06:00 01/15/25 06:05 10 ML Diagnostic Test (Pha) 1 strip ACHS 01/12/25 07:00 01/15/25 10:51 1 STRIP Insulin Human Regular ACHS SC 01/12/25 07:00 01/15/25 11:18 4 UNITS Dextrose 50 ml UD PRN IV 01/12/25 00:15 Vancomycin HCl 0 ml @ 0 mls/hr PER PHARMACY IV 01/12/25 00:15 Cefepime HCl 50 ml @ 12.5 mls/hr Q12HR IV 01/12/25 10:00 01/15/25 09:38 12.5 MLS/HR Phenytoin Sodium 100 mg Q8HR PO 01/12/25 06:00 01/15/25 06:05 100 MG Laboratory Results Laboratory Tests 01/14/25 04:57 01/15/25 04:31 Urinalysis Test 01/12/25 03:21 Urine Color Colorless (Yellow) Urine Clarity Turbid (Clear) H Urine pH 5.5 (5.0-9.0) Urine Specific [place] 1.023 (1.001-1.035) Urine Protein 1+ (Negative) H Urine Ketones Negative (Negative) Urine Blood 1+ /uL (Negative) H Urine Nitrite Negative (Negative) Urine Bilirubin Negative (Negative) Urine Urobilinogen Normal mg/dL (Negative) Urine Leukocyte Esterase 3+ /uL (Negative) Urine RBC 23 /hpf (0 - 3) Urine WBC Clumps Present /hpf (None Seen) Urine Microscopic WBC 850 /HPF (0-3) H Urine Squamous Epithelial Cells None seen /hpf (<5) Urine Bacteria None seen /hpf (None Seen) Urine Yeast (Budding) Many /hpf (None Seen) Urine Glucose 1+ mg/dL (Normal) H Microbiology Microbiology Date/Time Source Procedure Growth Status 01/12/25 03:21 Voided Urine Urine Culture - Final Complete 01/12/25 03:00 Blood Blood Culture - Preliminary NO GROWTH AFTER 72 HOURS OF INCUBATION. Resulted 01/12/25 01:12 Foot Gram Stain - Final Complete 01/12/25 01:12 Wound Culture - Final Staphylococcus aureus Complete Labs and/or images reviewed: Labs reviewed by me, Image(s) reviewed by me Assessment/Plan Assessment/Plan 74-year-old male with a known history of diabetes mellitus type 2, seizure disorder, polysubstance abuse, previous history of diabetic foot wound status post transmetatarsal amputation presented to the hospital with bilateral 40 wound drainage found to have 1. Bilateral foot wound with cellulitis 2. Acute osteomyelitis at 1st 2nd and 4th meter metatarsals of left foot 4. Polysubstance abuse 5. Rule out osteomyelitis of the right foot wound, 01/14: MRI of the right foot today, depending upon MRI report podiatry services we will decide whether patient needs debridement versus p.o. antibiotics.c ontinue IV antibiotics. 01/15: Patient improving, MRI negative for osteo. We will follow up with Podiatry for next step. Continuing IV antibiotics. If stable likely discharge tomorrow with oral antibiotics. On culture is growing MSSA Plan discussed with: Patient Date of Service: Jan 15, 2025 Billing Provider: STEFANY MCLAIN MD Common Visit Codes: [id number] INP/OBS CARE(HIGH) STEFANY MCLAIN MD Jan 15, 2025 14:07
[2025-01-15] MEDS: VANCOMYCIN 750MG KIT 100 ML IV ONE (17:00)
[2025-01-15] MEDS: VANCOMYCIN 750MG KIT 100 ML ONE (17:03)
[2025-01-16 01:00] VITALS: BP 103/66; PULSE 81; RESP 18; TEMP 98.3; O2SAT 94
[2025-01-16 05:00] VITALS: BP 105/68; PULSE 86; RESP 18; TEMP 98.2; O2SAT 91
[2025-01-16 08:00] VITALS: PULSE 86; RESP 18; O2SAT 97
--- NOTE | 2025-01-16 08:32 | DVHDS2 ---
Discharge Summary Date of Admission Jan 12, 2025 at 00:04 Date of Discharge: Jan 16, 2025 Labs/Diagnostic Data: Laboratory Results Test 01/16/25 06:18 01/16/25 05:49 01/14/25 04:57 01/13/25 18:44 Creatinine 1.37 mg/dL (0.700-1.30) Glomerular Filtration Rate Calc 54 mL/min (>90) POC Glucose 227 mg/dl (70-106) White Blood Count 9.6 10^3/uL (4.4-10.8) Red Blood Count 4.92 10^6/uL (4.5-5.90) Hemoglobin 13.5 g/dL (13.5-17.5) Hematocrit 40.1 % (41.0-53.0) Mean Corpuscular Volume 81.4 fL (80.0-100.0) Mean Corpuscular Hemoglobin 27.4 pg (28.0-32.0) Mean Corpuscular Hemoglobin Concent 33.6 g/dL (32.0-36.0) Red Cell Distribution Width 14.7 % (11.8-14.3) Platelet Count 178 10^3/uL (140-450) Mean Platelet Volume 8.6 fL (6.9-10.8) Neutrophils (%) (Auto) 71.1 % (37.0-80.0) Lymphocytes (%) (Auto) 20.5 % (10.0-50.0) Monocytes (%) (Auto) 6.5 % (0.0-12.0) Eosinophils (%) (Auto) 1.6 % (0.0-7.0) Basophils (%) (Auto) 0.3 % (0.0-2.0) Neutrophils # (Auto) 6.8 10 ^3/uL (1.6-8.6) Lymphocytes # (Auto) 2.0 10 ^3/uL (0.4-5.4) Monocytes # (Auto) 0.6 10 ^3/uL (0-1.3) Eosinophils # (Auto) 0.2 10 ^3/uL (0-0.8) Basophils # (Auto) 0 10 ^3/uL (0-0.2) Nucleated Red Blood Cells 0.0 % Sodium Level 141 mmol/L (136-145) Potassium Level 4.9 mmol/L (3.5-5.1) Chloride Level 107 mmol/L (98-107) Carbon Dioxide Level 24 mmol/L (20-31) Anion Gap 10 (5-15) Blood Urea Nitrogen 32 mg/dL (9-23) BUN/Creatinine Ratio 25.8 (10.0-20.0) Serum Glucose 154 mg/dL (74-106) Calcium Level 8.9 mg/dL (8.7-10.4) Magnesium Level 1.9 mg/dL (1.6-2.6) Phenytoin (Dilantin) Level 5.6 ug/mL (10-20) Test 01/12/25 20:35 01/12/25 03:21 01/12/25 03:00 01/12/25 01:02 Total Bilirubin 0.2 mg/dL (0.2-1.0) Direct Bilirubin < 0.1 mg/dL (<0.3) Aspartate Amino Transferase (AST) 19 U/L (13-40) Alanine Aminotransferase (ALT) 13 U/L (7-40) Alkaline Phosphatase 144 U/L (46-116) C-Reactive Protein High Sensitivity 0.92 mg/dL (<1.0) Total Protein 8.6 g/dL (5.7-8.2) Albumin 4.6 g/dL (3.2-4.8) Urine Color Colorless (Yellow) Urine Clarity Turbid (Clear) Urine pH 5.5 (5.0-9.0) Urine Specific [place] 1.023 (1.001-1.035) Urine Protein 1+ (Negative) Urine Ketones Negative (Negative) Urine Blood 1+ /uL (Negative) Urine Nitrite Negative (Negative) Urine Bilirubin Negative (Negative) Urine Urobilinogen Normal mg/dL (Negative) Urine Leukocyte Esterase 3+ /uL (Negative) Urine RBC 23 /hpf (0 - 3) Urine WBC Clumps Present /hpf (None Seen) Urine Microscopic WBC 850 /HPF (0-3) Urine Squamous Epithelial Cells None seen /hpf (<5) Urine Bacteria None seen /hpf (None Seen) Urine Yeast (Budding) Many /hpf (None Seen) Urine Glucose 1+ mg/dL (Normal) Urine Opiates Screen Neg (NEGATIVE) Urine Fentanyl Screen Neg (NEGATIVE) Urine Barbiturates Screen Neg (NEGATIVE) Urine Phencyclidine Screen Neg (NEGATIVE) Urine Amphetamines Screen Neg (NEGATIVE) Urine Benzodiazepines Screen Neg (NEGATIVE) Urine Cocaine Screen Neg (NEGATIVE) Urine Cannabinoids Screen Neg (NEGATIVE) Lactic Acid Level 1.2 mmol/L (0.4-2.0) Erythrocyte Sedimentation Rate 52 mm/hr (0-20) Hemoglobin A1c 9.8 % A1C (<5.7) Test 01/11/25 20:35 Troponin I High Sensitivity 7 ng/L (</=54) Other Laboratory Tests 01/16/25 06:18 01/14/25 04:57 Brief Hx & Hospital Course: 74-year-old male with a known history of diabetes mellitus type 2, seizure disorder, polysubstance abuse, previous history of diabetic foot wound status post transmetatarsal amputation presented to the hospital with bilateral 40 wound drainage found to cellulitis. 01/14: MRI of the right foot today, depending upon MRI report podiatry services we will decide whether patient needs debridement versus p.o. antibiotics.continue IV antibiotics. 01/15: Patient improving, MRI negative for osteo. We will follow up with Podiatry for next step. Continuing IV antibiotics. If stable likely discharge tomorrow with oral antibiotics. On culture is growing MSSA 01/16: Wound culture mostly sensitive, penicillins sensitive. Vital signs stable. Cleared from Podiatry. Stable for discharge per plan below. Patient to complete Augmentin 875 twice daily for 10 days. Close outpatient follow up with Podiatry. Patient is a do regular bandage changes every other day, dry,. Continue other home medications not mentioned above. Diagnosis: Bilateral foot wound with cellulitis ruled out osteomyelitis of left foot Polysubstance abuse Ruled out osteomyelitis of the right foot wound history amputation left foot TMA, due to diabetic foot infection diabetes mellitus type 2 seizure disorder Discharge plan: - Augmentin 875 twice daily for 10 days - home health for medication management and wound care - Close outpatient follow up with Podiatry - Patient is a do regular bandage changes every other day, dry - Continue other home medications not mentioned above Condition at Discharge: Fair Final Diagnosis/Problems List Bilateral foot wound with cellulitis ruled out osteomyelitis of left foot Polysubstance abuse Ruled out osteomyelitis of the right foot wound history amputation left foot TMA, due to diabetic foot infection diabetes mellitus type 2 seizure disorder Discharge Disposition: Home with Health Services Discharge Instruct/Medications Scheduled Insulin Regular (Human) (Novolin R), 20 UNIT SUBCUT TID, (Reported) Phenytoin Sodium (Dilantin Capsule), Unknown Dose PO TID, (Reported) Discharge Statement: "Patient was advised to return to the ER or call 911 if any headaches, dizziness, shortness of breath, chest pain, abdominal pain, bleeding, fevers, or worsening of medical condition. Patient was counseled about treatment plan, medications, possible side effects, patientverbalized understanding. All questions were answered to the best of my ability. This discharge took greater then 30 minutes in planning, reviewing documentation, counseling the patient, and discussing with other team members." ASSESSMENT ASSESSMENT Assessment Date of Service: Jan 16, 2025 Billing Provider: STEFANY MCLAIN MD Common Visit Codes: [id number] DISCH DAY >30min STEFANY MCLAIN MD Jan 16, 2025 08:32
[2025-01-16 08:50] VITALS: BP 111/74; PULSE 87; RESP 18; TEMP 98.1; O2SAT 96
[2025-01-16 12:52] VITALS: BP 120/80; PULSE 80; RESP 16; TEMP 97.9; O2SAT 96
[2025-01-16 17:20] VITALS: BP 132/79; PULSE 85; RESP 17; TEMP 98.2; O2SAT 93
== END 2025-01-16 17:20 | disposition home health service (06) | DRG 603 ==
LOC: EDUNIT# 17:36 → ER 17:36 → EDBD 17:36 → OVERFLOW 01-12 00:04 → CENTRAL 01-12 02:21
PROVIDERS: ADMIT Student in an Organized Health Care Education/Training Program; ATTEND Student in an Organized Health Care Education/Training Program
DX: L03.116 Cellulitis of left lower limb (principal); S91.301A Unspecified open wound, right foot, initial encounter; L03.115 Cellulitis of right lower limb; S91.302A Unspecified open wound, left foot, initial encounter; G40.909 Epilepsy, unspecified, not intractable, without status epilepticus; F19.10 Other psychoactive substance abuse, uncomplicated; E11.9 Type 2 diabetes mellitus without complications; F17.210 Nicotine dependence, cigarettes, uncomplicated; Z79.4 Long term (current) use of insulin; Z88.8 Allergy status to other drugs, medicaments and biological substances
CPT/HCPCS: 36415; 73700; 73718; 80048; 80053; 80076; 80185; 80202; 80307; 81001; 82565; 82962; 83036; 83605; 83735; 84484; 85025; 85652; 86141; 87040; 87077; 87081; 87086; 87186; 87205; G0378; J1815

== ENCOUNTER 2025-02-25 16:18 | Emergency (ER) | payer MEDICARE, OTHER ==
[~2025-02-25] VITALS: Ht 152.4 cm; Wt 55.0 kg
--- NOTE | 2025-02-25 17:18 | ED.PDOC ---
HPI (NEURO) HPI Comments This is a 75 year old male TERIA presenting to the ED with chief complaint of seizure. EMS reports that the patient had been witnessed at his [facility] to have had a seizure lasting about a minute. EMS relays that the patient is on his seizure medication daily. Patient states he feels much better now. Patient denies any SOB, chest pain, dizziness, N/V, fever, or chills. Chief Complaint: Seizure Time Seen by MD: 17:16 Primary Care Provider: OUT OF TOWN Reviewed Notes: Nurses Notes, Nail Expert Notes, Medications, Allergies Information Source: Patient, Emergency Med Personnel Mode of Arrival: EMS Severity: Moderate Timing: Hours Duration: Minutes Prehospital treatment: None Seizure Quality: Tonic-clonic Seizure Location: Generalized Onset: At rest Circumstances: Spontaneous History of: Seizure Disorder Past Medical History PAST MEDICAL HISTORY: DM, Seizures Surgical History: Denies all surgeries Family History Family History: Reviewed,noncontributory to illness Social History Smoker: Cigarettes Alcohol: Occasionally Drugs: Methamphetamine Lives In: Home Constitutional: denies: chills, diaphoresis, fatigue, fever, malaise, sweats, weakness, others EENTM: denies: blurred vision, double vision, ear bleeding, ear discharge, ear drainage, ear pain, ear ringing, eye pain, eye redness, hearing loss, mouth pain, mouth swelling, nasal discharge, nose bleeding, nose congestion, nose pain, photophobia, tearing, throat pain, throat swelling, voice changes, others Respiratory: denies: cough, hemoptysis, orthopnea, SOB at rest, shortness of breath, SOB with excertion, stridor, wheezing, others Cardiovascular: denies: chest pain, dizzy spells, diaphoresis, Dyspnea on exertion, edema, irregular heart beat, left arm pain, lightheadedness, palpitations, PND, syncope, others Gastrointestinal: denies: abdomen distended, abdominal pain, blood streaked bowels, constipated, diarrhea, dysphagia, difficulty swallowing, hematemesis, melena, nausea, poor appetite, poor fluid intake, rectal bleeding, rectal pain, vomiting, others Genitourinary: denies: burning, dysuria, flank pain, frequency, hematuria, incontinence, penile discharge, penile sore, pain, testicle pain, testicle swelling, urgency, others Neurological: reports: seizure; denies: dizziness, fainting, headache, left sided numbness, left sided weakness, numbness, paresthesia, pre-existing deficit, right sided numbness, right sided weakness, speech problems, tingling, tremors, weakness, others Musculoskeletal: denies: back pain, gout, joint pain, joint swelling, muscle pain, muscle stiffness, neck pain, others Integumetry: denies: bruises, change in color, change in hair/nails, dryness, laceration, lesions, lumps, rash, wounds, others Allergic/Immunocompromised: denies: Difficulty Healing, Frequent Infections, Hives, Itching, others Hematologic/Lymphatic: denies: anemia, blood clots, easy bleeding, easy bruising, swollen glands, others Endocrine: denies: excessive hunger, excessive sweating, excessive thirst, excessive urination, flushing, intolerance to cold, intolerance to heat, unexplained weight gain, unexplained weight loss, others Psychiatric: denies: anxiety, bipolar disorder, depression, hopeless, panic disorder, schizophrenia, sleepless, suicidal, others All Other Systems: Reviewed and Negative Physical Exam General Appearance: No Apparent Distress, Normal HEENT: Normal ENT Inspection, Pharynx Normal, TMs Normal Neck: Full Range of Motion, Non-Tender, Normal, Normal Inspection Respiratory: Chest Non-Tender, Lungs Clear, No Accessory Muscle Use, No Respiratory Distress, Normal Breath Sounds Cardiovascular: No Edema, No JVD, No Murmur, No Gallop, Normal Peripheral Pulses, Regular Rate/Rhythm Breast Exam: Deferred Gastrointestinal: No Organomegaly, Non Tender, No Pulsatile Mass, Normal Bowel Sounds, Soft Genitalia: Deferred Pelvic: Deferred Rectal: Deferred Extremities: No calf tenderness, Normal capillary refill, Normal inspection, Normal range of motion, Non-tender, No pedal edema Musculoskeletal : Apperance: Normal Neurologic: Alert, 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 Was a procedure done?: No Differential Diagnosis (SZ) Seizure: Epilepsy-Break Through X-Ray, Labs, Meds, VS Vital Signs Date Time Temp Pulse Resp B/P (MAP) Pulse Ox O2 Delivery O2 Flow Rate FiO2 12/8/25 16:21 98.8 89 18 131/80 94 98.8 Time of 1ST Reevaluation: 18:16 Reevaluation 1ST: Unchanged Patient Education/Counseling: Diagnosis, Treatment Family Education/Counseling: No Family Present Departure 1 Departure Time of Disposition: 17:20 (Patient likely with epilepsy breakthrough seizure. Patient returned to baseline. We will discharge patient home) Impression: Primary Impression: Breakthrough seizure Disposition: [facility] F[facility]ILITY Condition: Stable Additional Instructions: You had a breakthrough seizure today. It is important to take your seizure medication. You should stay well rested and well hydrated. You should follow up with your regular doctor within 1 week. If your symptoms worsen or you have any other concerns then please return to the emergency room. Critical Care Note Critical Care Time?: No Stability Stability form required: No Heart Score Heart Score: Heart Score Response (Comments) Value History N/A 0 EKG N/A 0 Age N/A 0 Risk Factors N/A 0 Troponin N/A 0 Total 0 I personally scribed for GUSTAVO MAE MD ([email or web address]) on 02/25/25 at 17:18. Electronically submitted by Jose Mae ([email or web address]). GUSTAVO MAE MD Feb 25, 2025 17:18
[2025-02-25 17:29] VITALS: BP 122/68; PULSE 87; RESP 15; TEMP 98.3; O2SAT 94
[2025-02-25] MEDS: levETIRAcetam 1000 mg/100ml 100 ML IV ONE (17:35)
== END 2025-02-25 18:27 ==
LOC: ER 16:18 → EDBD 16:18 → ER 18:20
DX: G40.909 Epilepsy, unspecified, not intractable, without status epilepticus (principal); F17.210 Nicotine dependence, cigarettes, uncomplicated; F10.90 Alcohol use, unspecified, uncomplicated; E11.9 Type 2 diabetes mellitus without complications
CPT/HCPCS: 82947; 96374; 99284; J1953; 96365